=== PATIENT | male | born 1960 ===

== ENCOUNTER 2017-10-10 06:31 | Inpatient (IN) | payer OTHER ==
[~2017-10-10] VITALS: Ht 177.8 cm; Wt 104.8 kg
[~2017-10-10 06:31] MED LIST: AZATHIOPRINE; CITA20 PO; HYDACE5 PO; HYDR1TAB94 PO; LISI5 PO; MESA250ER; METO10 PO; METO100ER PO; Norco 10-325 T1 EACH PO
[2017-10-10 07:03] LABS: BASOPHILS ABSOLUTE AUTO 0.01 K/mm3 (0.00-0.23); BASOPHILS PERCENT AUTO 0 % (0-2); EOSINOPHILS ABSOLUTE AUTO 0.02 K/mm3 (0.00-0.68); EOSINOPHILS PERCENT AUTO 0 % (0-6); Hematocrit 45.2 % (37.0-53.0); Hemoglobin 15.8 g/dL (13.5-17.5); IMMATURE GRAN ABSOLUTE AUTO 0.02 K/mm3 (0.00-0.10); IMMATURE GRAN PERCENT AUTO 0 % (0-1); LYMPHOCYTES ABSOLUTE AUTO 0.73 K/mm3 (0.84-5.20); LYMPHOCYTES PERCENT AUTO 7 % (21-46); MONOCYTES ABSOLUTE AUTO 0.57 K/mm3 (0.16-1.47); MONOCYTES PERCENT AUTO 6 % (4-13); Mean Corpuscular HGB 31.3 pg (26.0-34.0); Mean Corpuscular Volume 90 fL (80-100); Mean Platelet Volume 11.5 fL (9.1-12.4); NEUTROPHILS ABSOLUTE AUTO 8.69 K/mm3 (1.96-9.15); NEUTROPHILS PERCENT AUTO 87 % (41-73); Platelet Count 216 K/mm3 (150-400); RDW Coefficient Variation 13.5 % (11.7-14.2); RDW Standard Deviation 44.1 fL (35.1-46.3); Red Blood Cell Count 5.05 M/mm3 (4.30-5.90); White Blood Cell Count 10.04 K/mm3 (4.00-11.30)
[2017-10-10 07:27] LABS: Alanine Aminotransfer (ALT/SGP 77 U/L (12-78); Albumin, Blood 4.3 g/dL (3.4-5.0); Alk Phos 67 U/L (50-136); Anion Gap 9 mmol/L (6-16); Aspartate Aminotrans (AST/SGOT 42 U/L (12-37); Bilirubin, Total 0.9 mg/dL (0.1-1.0); Blood Urea Nitrogen 16 mg/dL (8-24); Bun/Creatinine Ratio 20.1 (12.0-20.0); CO2, Blood 26 mmol/L (21-32); Calcium, Blood 9.5 mg/dL (8.5-10.1); Chloride, Blood 101 mmol/L (98-108); Globulin, Blood 4.2 g/dL (2.2-4.0); Glomerular Filtration Rate >60 (60-); Glucose, Blood 139 mg/dL (70-99); Sodium, Blood 136 mmol/L (136-145); Total Protein, Blood 8.5 g/dL (6.4-8.2)
[2017-10-11 04:40] LABS: BASOPHILS PERCENT AUTO 0 % (0-2); EOSINOPHILS PERCENT AUTO 0 % (0-6); Hematocrit 38.4 % (37.0-53.0); Hemoglobin 13.4 g/dL (13.5-17.5); IMMATURE GRAN ABSOLUTE AUTO 0.01 K/mm3 (0.00-0.10); IMMATURE GRAN PERCENT AUTO 0 % (0-1); LYMPHOCYTES ABSOLUTE AUTO 0.57 K/mm3 (0.84-5.20); LYMPHOCYTES PERCENT AUTO 10 % (21-46); MONOCYTES ABSOLUTE AUTO 0.11 K/mm3 (0.16-1.47); MONOCYTES PERCENT AUTO 2 % (4-13); Mean Corpuscular HGB 31.3 pg (26.0-34.0); Mean Corpuscular HGB Conc 34.9 g/dL (31.5-36.5); Mean Corpuscular Volume 90 fL (80-100); Mean Platelet Volume 11.3 fL (9.1-12.4); NEUTROPHILS ABSOLUTE AUTO 4.78 K/mm3 (1.96-9.15); NEUTROPHILS PERCENT AUTO 87 % (41-73); Platelet Count 175 K/mm3 (150-400); RDW Coefficient Variation 13.6 % (11.7-14.2); RDW Standard Deviation 44.8 fL (35.1-46.3); Red Blood Cell Count 4.28 M/mm3 (4.30-5.90); White Blood Cell Count 5.47 K/mm3 (4.00-11.30)
[2017-10-11 04:56] LABS: Anion Gap 6 mmol/L (6-16); Blood Urea Nitrogen 16 mg/dL (8-24); Bun/Creatinine Ratio 19.6 (12.0-20.0); CO2, Blood 28 mmol/L (21-32); Chloride, Blood 104 mmol/L (98-108); Creatinine, Blood 0.82 mg/dL (0.60-1.20); Glomerular Filtration Rate >60 (60-); Glucose, Blood 132 mg/dL (70-99); Potassium, Blood 4.2 mmol/L (3.5-5.5); Sodium, Blood 138 mmol/L (136-145)
[2017-10-11 05:00] LABS: Calcium, Blood 8.3 mg/dL (8.5-10.1)
[2017-10-12] MEDS ORDERED: AMLO5 PO (13:35)
[2017-10-12] MEDS ORDERED: CIPR500 PO (13:36)
[2017-10-12] MEDS ORDERED: METR500 PO (13:37)
[2017-10-12] MEDS ORDERED: PRED10 PO (13:40)
[2017-10-13 19:22] LABS: Quantiferon Nil 0.03 IU/mL; Quantiferon TB Gold Negative (NEG); TB Mitogen Value (Mg-Nil) >10.00 IU/mL
[2018-08-19] MEDS ORDERED: AZAT50 (07:54)
[2018-08-19] MEDS ORDERED: HYDCHL12.5 (07:55)
== END 2017-10-12 14:00 | disposition home or self-care (01) | DRG 386 ==
LOC: ER 06:31 → MEDS 06:32
PROVIDERS: Emergency Medicine; Internal Medicine; Internal Medicine Gastroenterology
DX: K50.012 Crohn's disease of small intestine with intestinal obstruction (principal); R18.8 Other ascites; I10 Essential (primary) hypertension; Z79.52 Long term (current) use of systemic steroids; Z90.49 Acquired absence of other specified parts of digestive tract; Z88.0 Allergy status to penicillin; Z87.891 Personal history of nicotine dependence
CPT/HCPCS: 36415; 74018; 74177; 80048; 80053; 83690; 85025; 86141; 86480; 86704; 86706; 87340; 96361; 96374; 96375; 96376; 99285; G0378; J0744; J1170; J1650; J2405; J2920; J3480; J7030; Q9967

== ENCOUNTER 2019-01-06 03:03 | Inpatient (IN) | payer OTHER ==
[~2019-01-06] VITALS: Ht 177.8 cm; Wt 114.3 kg
[~2019-01-06 03:03] MED LIST changes: +AMLO5 PO; +AZAT50; +CIPR500 PO; +HYDCHL12.5; +METR500 PO; +PRED10 PO
[2019-01-06] MEDS ORDERED: Lisinopril2.5 MG (03:59)
[2019-01-06] MEDS ORDERED: NEBI5 (04:00)
[2019-01-06 04:14] LABS: BASOPHILS ABSOLUTE AUTO 0.02 K/mm3 (0.00-0.23); BASOPHILS PERCENT AUTO 0 % (0-2); EOSINOPHILS ABSOLUTE AUTO 0.11 K/mm3 (0.00-0.68); EOSINOPHILS PERCENT AUTO 1 % (0-6); Hemoglobin 14.9 g/dL (13.5-17.5); IMMATURE GRAN ABSOLUTE AUTO 0.01 K/mm3 (0.00-0.10); IMMATURE GRAN PERCENT AUTO 0 % (0-1); LYMPHOCYTES ABSOLUTE AUTO 1.17 K/mm3 (0.84-5.20); LYMPHOCYTES PERCENT AUTO 13 % (21-46); MONOCYTES PERCENT AUTO 9 % (4-13); Mean Corpuscular HGB Conc 34.7 g/dL (31.5-36.5); Mean Corpuscular Volume 93 fL (80-100); Mean Platelet Volume 11.6 fL (9.1-12.4); NEUTROPHILS ABSOLUTE AUTO 7.02 K/mm3 (1.96-9.15); NEUTROPHILS PERCENT AUTO 77 % (41-73); Platelet Count 190 K/mm3 (150-400); RDW Coefficient Variation 13.9 % (11.7-14.2); RDW Standard Deviation 46.8 fL (35.1-46.3); Red Blood Cell Count 4.65 M/mm3 (4.30-5.90); White Blood Cell Count 9.13 K/mm3 (4.00-11.30)
[2019-01-06 04:33] LABS: Alanine Aminotransfer (ALT/SGP 62 U/L (12-78); Albumin/Globulin Ratio 1.1 (0.8-1.8); Alk Phos 46 U/L (50-136); Anion Gap 7 mmol/L (6-16); Aspartate Aminotrans (AST/SGOT 44 U/L (12-37); Bilirubin, Total 0.8 mg/dL (0.1-1.0); Blood Urea Nitrogen 17 mg/dL (8-24); Bun/Creatinine Ratio 20.5 (12.0-20.0); CO2, Blood 30 mmol/L (21-32); Calcium, Blood 9.5 mg/dL (8.5-10.1); Chloride, Blood 102 mmol/L (98-108); Creatinine, Blood 0.83 mg/dL (0.60-1.20); Globulin, Blood 3.7 g/dL (2.2-4.0); Glomerular Filtration Rate >60 (60-); Glucose, Blood 129 mg/dL (70-99); Potassium, Blood 3.7 mmol/L (3.5-5.5); Sodium, Blood 139 mmol/L (136-145); Total Protein, Blood 7.7 g/dL (6.4-8.2)
--- NOTE | 2019-01-06 05:34 | NUR ---
TRANSFER REPORT FROM GONSALO SCHWARTZ IN ER ON PT BEING ADMITTED WITH PARTIAL BOWEL OBSTRUCTION , HX OF BOWEL RESECTION WITH MODERATE STOOL BLOCKAGE BEHIND ANASTAMOSIS. PT HAD SEVERE PAIN AND HAD 2 MG IV DILAUDID. AWAIT ADMISSION
[2019-01-06 06:22] LABS: Source, Urine Clean Catch
[2019-01-06 06:29] LABS: Bilirubin, Urine Neg (Neg); Blood, Urine Neg (Neg); Glucose Qualitative, Urine Neg (Neg); Ketones, Urine Neg (Neg); Leukocyte Esterase, Urine Neg (Neg); Nitrite, Urine Neg (Neg); Protein, Urine Neg (Neg); Urobilinogen, Urine NORM (Normal)
[2019-01-06 06:30] LABS: Appearance, Urine Clear (Clear); Color, Urine Yellow (P-Yellow)
--- NOTE | 2019-01-06 11:27 | NUR ---
Spiritual care visit conducted. Patient was lying in bed and resting when I entered patient's room. Spouse, Arabella, is bedside. Patient quickly awoke at the sound of his name. Patient and Arabella shared with me about their life/family history, about their spiritual beliefs and about patient's medical history. I listened empathically, provided pastoral curriculum counselor, companionship and prayer. Patient and Arabella responded well and showed signs of an elevated mood. They both expressed gratitude for my visit.
--- NOTE | 2019-01-06 17:48 | NUR ---
SUMMARY PT RESTING QUIETLY IN BED, HAS BEEN INDEPENDENT IN THE ROOM, SPOUSE CURRENTLY PRESENT, PT MED PER EMAR FOR PAIN, PT REPORTED "PASSING THE BLOCKAGE" IE: HAD A LARGE LOOSE BM, PT HAS SLEPT FOR MOST OF THE DAY, VSS, NO ACUTE CHANGES, WILL CONT TO MONITOR
--- NOTE | 2019-01-07 02:44 | NUR ---
*LATE ENTRY* DR. DESAI IN TO SEE PT AROUND 0040, CHANGED DIET TO CLEAR LIQUIDS & STATED IF PT TOLERATES CLEAR LIQUIDS THAN HE CAN BE CHANGED TO FULL LIQUIDS FOR LUNCH & A FEW HOURS AFTER LUNCH IF PT IS STILL TOLERATING FULL LIQUID HE WILL BE OKAY W/DISCHARGING PT.
[2019-01-07 05:22] LABS: Hematocrit 37.9 % (37.0-53.0); Mean Corpuscular HGB 31.9 pg (26.0-34.0); Mean Corpuscular HGB Conc 34.3 g/dL (31.5-36.5); Mean Corpuscular Volume 93 fL (80-100); Mean Platelet Volume 11.9 fL (9.1-12.4); Platelet Count 159 K/mm3 (150-400); RDW Coefficient Variation 13.7 % (11.7-14.2); RDW Standard Deviation 46.3 fL (35.1-46.3); Red Blood Cell Count 4.08 M/mm3 (4.30-5.90); White Blood Cell Count 7.99 K/mm3 (4.00-11.30)
[2019-01-07 06:38] LABS: Alanine Aminotransfer (ALT/SGP 45 U/L (12-78); Albumin, Blood 3.6 g/dL (3.4-5.0); Albumin/Globulin Ratio 1.1 (0.8-1.8); Alk Phos 48 U/L (50-136); Anion Gap 6 mmol/L (6-16); Aspartate Aminotrans (AST/SGOT 24 U/L (12-37); Bilirubin, Total 1.1 mg/dL (0.1-1.0); Blood Urea Nitrogen 10 mg/dL (8-24); Bun/Creatinine Ratio 14.5 (12.0-20.0); CO2, Blood 26 mmol/L (21-32); Calcium, Blood 8.8 mg/dL (8.5-10.1); Chloride, Blood 106 mmol/L (98-108); Creatinine, Blood 0.69 mg/dL (0.60-1.20); Globulin, Blood 3.2 g/dL (2.2-4.0); Glomerular Filtration Rate >60 (60-); Glucose, Blood 129 mg/dL (70-99); Sodium, Blood 138 mmol/L (136-145); Total Protein, Blood 6.8 g/dL (6.4-8.2)
--- NOTE | 2019-01-07 06:38 | NUR ---
SHIFT SUMMARY PT AWAKE ON/OFF T/O NIGHT. AOX4. VSS. DR DESAI IN TO SEE PT AROUND 0040, SEE PREVIOUS NOTE. PT DENIES N/V OR SOB. REPORTS 5/10 A[facility]Y PAIN ALLOVER BODY, MEDICATED 1X W/FENTANYL PER ORDERS. PT REPORTS HAVING 3-4 BM YETERDAY & STATES HE FEELS HE HAS "PASSED" THE BOWEL BLOCKAGE. ABD IS NON-TENDER TO PALPATION W/HYPOACTIVE BT. DIET WAS CHANGED TO CLEAR LIQUIDS PER DR DESAI, SEE PREVIOUS NOTE. CALL LIGHT IS IN REACH.
[2019-01-07] MEDS ORDERED: Prinivil10 MG PO (10:31)
[2019-01-07] MEDS ORDERED: METPRE4DP PO (10:32)
--- NOTE | 2019-01-07 10:58 | NUR ---
Patient is lying in bed and alert when I entered the room. Therapeutic alliance is already established so patient openly shares about his struggles with Crohn's disease and the side effects of the new medications that are being prescribed. We talked about risk verses benefit and explored patient's sources of peace and inspiration. I provided emotional support, normalized patient's experience and provided spiritual guidance. Patient responded well and displayed evidence of stabilization and peace.
--- NOTE | 2019-01-07 14:17 | NUR ---
DISCHARGE DISCHARGE MEDICATIONS AND INSTRUCTIONS EXPLAINED TO PATIENT. PATIENT STATED UNDERSTANDING. IV REMOVED WITHOUT DIFFICULTY. BELONGINGS WITH PATIENT. PATIENT AMBULATED TO PRIVATE VEHICLE.
== END 2019-01-07 14:13 | disposition home or self-care (01) | DRG 387 ==
LOC: ER 03:03 → MEDS 04:55 → ENPENDDIS 01-07 09:32 → MEDS 01-07 14:13
PROVIDERS: Emergency Medicine; ADMIT Internal Medicine
DX: K50.012 Crohn's disease of small intestine with intestinal obstruction (principal); M19.90 Unspecified osteoarthritis, unspecified site; I10 Essential (primary) hypertension; Z90.49 Acquired absence of other specified parts of digestive tract
CPT/HCPCS: 36415; 74176; 80053; 81003; 83690; 85025; 85027; 85651; 86140; 96361; 96374; 96375; 99285-25; C9113; J1170; J1650; J1720; J2405; J3010; J7030

== ENCOUNTER → 2020-08-23 | Outpatient (CLI) | payer OTHER ==
[~2020-08-23] MED LIST changes: +Lisinopril2.5 MG; +METPRE4DP PO; +NEBI5; +Prinivil10 MG PO
[2020-08-23 16:49] LABS: BASOPHILS ABSOLUTE AUTO 0.03 K/mm3 (0.00-0.23); BASOPHILS PERCENT AUTO 1 % (0-2); EOSINOPHILS ABSOLUTE AUTO 0.14 K/mm3 (0.00-0.68); EOSINOPHILS PERCENT AUTO 2 % (0-6); Hematocrit 38.3 % (37.0-53.0); Hemoglobin 13.7 g/dL (13.5-17.5); IMMATURE GRAN ABSOLUTE AUTO 0.01 K/mm3 (0.00-0.10); IMMATURE GRAN PERCENT AUTO 0 % (0-1); LYMPHOCYTES PERCENT AUTO 26 % (21-46); MONOCYTES ABSOLUTE AUTO 0.55 K/mm3 (0.16-1.47); MONOCYTES PERCENT AUTO 9 % (4-13); Mean Corpuscular HGB 31.7 pg (26.0-34.0); Mean Corpuscular HGB Conc 35.8 g/dL (31.5-36.5); Mean Corpuscular Volume 89 fL (80-100); Mean Platelet Volume 11.6 fL (9.1-12.4); NEUTROPHILS PERCENT AUTO 62 % (41-73); Platelet Count 163 K/mm3 (150-400); RDW Coefficient Variation 13.1 % (11.7-14.2); RDW Standard Deviation 42.5 fL (35.1-46.3); Red Blood Cell Count 4.32 M/mm3 (4.30-5.90); White Blood Cell Count 6.43 K/mm3 (4.00-11.30)
[2020-08-23 17:22] LABS: Alanine Aminotransfer (ALT/SGP 70 U/L (12-78); Albumin, Blood 4.2 g/dL (3.4-5.0); Albumin/Globulin Ratio 1.2 (0.8-1.8); Alk Phos 45 U/L (40-126); Anion Gap 6 mmol/L (6-16); Aspartate Aminotrans (AST/SGOT 39 U/L (12-37); Bilirubin, Total 0.6 mg/dL (0.1-1.0); Blood Urea Nitrogen 14 mg/dL (8-24); Bun/Creatinine Ratio 15.4 (12.0-20.0); CO2, Blood 32 mmol/L (21-32); Calcium, Blood 9.1 mg/dL (8.5-10.1); Chloride, Blood 100 mmol/L (98-108); Creatinine, Blood 0.91 mg/dL (0.60-1.20); Globulin, Blood 3.6 g/dL (2.2-4.0); Glomerular Filtration Rate >60 (60-); Glucose, Blood 97 mg/dL (70-99); Sodium, Blood 138 mmol/L (136-145); Total Protein, Blood 7.8 g/dL (6.4-8.2)
[2020-08-23 18:05] LABS: International Normalized Ratio 0.96; Prothrombin Time Results 10.3 Sec (9.7-11.5)
== END ==
LOC: LAB EV 16:45 → LAB SHORT 16:45
DX: Z01.818 Encounter for other preprocedural examination (principal); M17.12 Unilateral primary osteoarthritis, left knee
CPT/HCPCS: 36415; 80053; 85025; 85610

== ENCOUNTER 2021-08-08 07:02 | Day surgery (SDC) | payer OTHER ==
[~2021-08-08] VITALS: Ht 177.8 cm; Wt 113.0 kg
[~2021-08-08 07:02] MED LIST changes: +ALBU90OI INH; +CHLO25B PO; +LOSA25 PO; -NEBI5; +NEBI5 PO; +NITR.6SL SL; +Nitroglycerin1 EACH TOP; +ROSU5 PO; +STELARA90 MG/1 ML SQ; +WIXELA 250-501 EAC1 PO
--- NOTE | 2021-08-08 09:28 | NUR ---
PATIENT ARRIVED TO [facility] ROOM. ALERT AND RESPONDS APPRORIATLY. TR BAND IN PLACE TO RIGHT RADIAL ARTERY. SITE SOFT AND NONTENDER. NO SWELLING.
--- NOTE | 2021-08-08 10:07 | NUR ---
ASSUMED CARE OF PATIENT AND TR BAND IN PLACE TO THE RIGHT RADIAL 18 ML OF AIR IN THE BAND. PLETH IS 95%. PATIENT IS ON THE MONITOR AND SINUS RHYTHM NOTED. WAS AT THE BEDSIDE BUT LEFT AND WILL BE BACK FOR DISCHARGE.
[2021-08-08] MEDS ORDERED: 1/2 NS 250ml250 ML (10:24)
[2021-08-08] MEDS ORDERED: ASPIR 8181 M1 PO (10:24)
[2021-08-08] MEDS ORDERED: Aspir 8181 MG PO (10:24)
--- NOTE | 2021-08-08 11:03 | NUR ---
PATIENT AWAKE AND SITTING UP IN THE RECLINER. BREAKFAST TRAY SERVED. PATIENT TR BAND REMAINS IN PLACE AND NO BLEEDING, NO HEMATOMA NOTED.
--- NOTE | 2021-08-08 11:35 | NUR ---
Assumed care of patient from Katerine SCHWARTZ.
--- NOTE | 2021-08-08 12:35 | NUR ---
PATIENT IS UP TO THE RESTROOM AND PUT UNDERWEAR ON. REVIEWED DISCHARGE INSTRUCTIONS WITH THE PATIENT AND COPIES SIGNED.
--- NOTE | 2021-08-08 13:24 | NUR ---
Patient verbalized understanding of discharge instructions and precautions. TR band removed. Right radial site soft and nontender. No bleeding. No hematoma. cloth dot applied to site and wrist board positioned on wrist. IV site dced with catheter intact. No further questions. Patient taken to car in wheel chair. driving.
== END 2021-08-08 11:30 | disposition home or self-care (01) ==
LOC: MHTC 07:02
DX: I25.10 Atherosclerotic heart disease of native coronary artery without angina pectoris (principal); I11.9 Hypertensive heart disease without heart failure; E78.5 Hyperlipidemia, unspecified
CPT/HCPCS: 76937; 85347; 93005; 93010; 93571; 99152; 99153; A9270; C1769; C1887; C1894; J1644; J2250; J3010; J7030; J7050; Q9967

== ENCOUNTER 2024-08-03 08:07 | Day surgery (SDC) | payer OTHER ==
[~2024-08-03] VITALS: Ht 177.8 cm; Wt 115.6 kg
[~2024-08-03 08:07] MED LIST changes: +1/2 NS 250ml250 ML; +ASPIR 8181 M1 PO; +Aspir 8181 MG PO; +IRBESARTAN300 MG PO
[2024-08-03] MEDS ORDERED: Lactated Ringer's 1,000 ML IV ONE ×2 (09:12→09:23)
[2024-08-03] MEDS ORDERED: Midazolam HCL 1 MG/ML 5MLVIAL ONE (09:48)
[2024-08-03] MEDS ORDERED: FentaNYL Citrate 50 MCG/ML 2 ML Injection ONE (09:48)
[2024-08-03] MEDS ORDERED: propofoL 20 ML IV ONE ×2 (09:48→09:49)
[2024-08-03 10:57] VITALS: BP 129/50
== END 2024-08-03 10:58 | disposition home or self-care (01) ==
LOC: ORSCSDS 08:07
PROVIDERS: Internal Medicine Gastroenterology
PROC: 0DBE8ZX Excision of Large Intestine, Via Natural or Artificial Opening Endoscopic, Diagnostic (ICD-10-PCS; principal; 2024-08-03 09:30)
DX: K50.90 Crohn's disease, unspecified, without complications (principal); K57.30 Diverticulosis of large intestine without perforation or abscess without bleeding; I10 Essential (primary) hypertension; J44.9 Chronic obstructive pulmonary disease, unspecified; Z87.891 Personal history of nicotine dependence; E66.9 Obesity, unspecified; Z68.36 Body mass index [BMI] 36.0-36.9, adult; Z79.899 Other long term (current) drug therapy
CPT/HCPCS: 88305; J2250; J2704; J3010; J7120

== ENCOUNTER 2025-07-12 11:33 | Day surgery (SDC) | payer OTHER ==
[~2025-07-12] VITALS: Ht 177.8 cm; Wt 112.4 kg
[~2025-07-12 11:33] MED LIST changes: +Crestor40 MG; +DOXA4 PO; +Glycopyrrolate 0.2 MG/ML 1MLVIAL ONE; +NITR.4SL SL; +Ondansetron HCl 2 MG / ML 2ML Vial ONE; +TADA10TA; +ePHEDrine Sulfate 50 MG/ML 1ML Injection ONE
[2025-07-12] MEDS ORDERED: DEPO-TESTO200 MG/18 (12:02)
[2025-07-12 15:38] VITALS: BP 111/75
== END 2025-07-12 11:53 | disposition home or self-care (01) ==
LOC: ORSCSDS 11:33
PROVIDERS: Internal Medicine Gastroenterology
PROC: 0DBB8ZX Excision of Ileum, Via Natural or Artificial Opening Endoscopic, Diagnostic (ICD-10-PCS; principal; 2025-07-12 13:00)
PROC: 0DBE8ZX Excision of Large Intestine, Via Natural or Artificial Opening Endoscopic, Diagnostic (ICD-10-PCS; principal; 2025-07-12 13:00)
PROC: 3E0H8KZ Introduction of Other Diagnostic Substance into Lower GI, Via Natural or Artificial Opening Endoscopic (ICD-10-PCS; principal; 2025-07-12 13:00)
DX: K50.90 Crohn's disease, unspecified, without complications (principal); Z90.49 Acquired absence of other specified parts of digestive tract; I10 Essential (primary) hypertension; E78.5 Hyperlipidemia, unspecified; F32.A Depression, unspecified; Z79.899 Other long term (current) drug therapy
CPT/HCPCS: 88305; J0461; J2003; J2405; J2704; J7120